=== PATIENT | male | born 1945 | race Caucasian/White ===

== ENCOUNTER 2016-11-05 20:38 | Observation (INO) | payer OTHER ==
[~2016-11-05] VITALS: Ht 175.3 cm; Wt 114.8 kg
[2016-11-05] MEDS ORDERED: GLUCOPHAGE 500500 MG PO (22:51)
[2016-11-05] MEDS ORDERED: LIPITOR TAB 1010 MG PO (22:52)
[2016-11-05] MEDS ORDERED: ELIQUIS 5 MG TAB5 MG PO (22:52)
[2016-11-05] MEDS ORDERED: PEPCID20 MG PO (22:52)
[2016-11-05] MEDS ORDERED: CARAFATE SU100 MG/ML PO (22:53)
[2016-11-06 07:56] LABS: BUN/CREATININE RATIO 16 (0-10)
[2016-11-06 08:17] LABS: HEMOGLOBIN 12.3 gm/dl (14.0-17.5); RED BLOOD COUNT 4.41 M/UL (4.20-5.50); WHITE BLOOD COUNT 4.9 K/UL (4.5-11.0)
[2016-11-06] MEDS ORDERED: IMDUR ER TAB 3030 MG PO (17:35)
== END 2016-11-06 18:00 | disposition home or self-care (01) ==
LOC: CCU 20:38
PROVIDERS: Internal Medicine; ADMIT Internal Medicine
DX: R07.9 Chest pain, unspecified (principal); I48.91 Unspecified atrial fibrillation; E11.9 Type 2 diabetes mellitus without complications; I10 Essential (primary) hypertension; E78.5 Hyperlipidemia, unspecified; E66.9 Obesity, unspecified; R53.1 Weakness; Z68.37 Body mass index [BMI] 37.0-37.9, adult; Z98.84 Bariatric surgery status; Z79.891 Long term (current) use of opiate analgesic; Z79.01 Long term (current) use of anticoagulants; Z79.899 Other long term (current) drug therapy; Z87.891 Personal history of nicotine dependence; Z88.8 Allergy status to other drugs, medicaments and biological substances
CPT/HCPCS: 36415; 71010; 78452; 80053; 82550; 82553; 82962; 83735; 84439; 84443; 84484; 85025; 93005; 93017; 96374; 96375; A9502; G0378; G0379; J2785; J7030

== ENCOUNTER → 2016-11-12 | Outpatient (CLI) | payer OTHER ==
[~2016-11-12] MED LIST: CARAFATE SU100 MG/ML PO; ELIQUIS 5 MG TAB5 MG PO; GLUCOPHAGE 500500 MG PO; IMDUR ER TAB 3030 MG PO; LEVAQUIN TAB 5500 MG PO; LIPITOR TAB 1010 MG PO; PEPCID20 MG PO; TYLENOL W/CODEIN1 E1 PO
[2016-11-12 13:37] LABS: HEMOGLOBIN 12.8 gm/dl (14.0-17.5); RED BLOOD COUNT 4.6 M/UL (4.20-5.50)
[2016-11-12 13:46] LABS: BUN/CREATININE RATIO 14 (0-10)
== END ==
LOC: LAB 12:26
PROVIDERS: Internal Medicine Cardiovascular Disease
DX: I48.91 Unspecified atrial fibrillation (principal); I49.5 Sick sinus syndrome
CPT/HCPCS: 36415; 80048; 85025

== ENCOUNTER 2016-11-13 12:13 | Outpatient (CLI) | payer OTHER ==
[~2016-11-13] VITALS: Ht 175.3 cm; Wt 114.3 kg
[~2016-11-13 12:13] MED LIST changes: -LEVAQUIN TAB 5500 MG PO; -TYLENOL W/CODEIN1 E1 PO
[2016-11-14] MEDS ORDERED: LEVAQUIN TAB 5500 MG PO (04:18)
[2016-11-14] MEDS ORDERED: TYLENOL W/CODEIN1 E1 PO (04:19)
== END 2016-11-14 10:25 | disposition home or self-care (01) ==
LOC: PROG CARE 12:13 → CATH 12:13 → PROG CARE 15:35 → CATH 11-14 10:25
DX: I49.5 Sick sinus syndrome (principal); I49.8 Other specified cardiac arrhythmias; I48.1 Persistent atrial fibrillation; I44.30 Unspecified atrioventricular block; E11.9 Type 2 diabetes mellitus without complications; R07.9 Chest pain, unspecified; Z23 Encounter for immunization; F17.210 Nicotine dependence, cigarettes, uncomplicated; M19.90 Unspecified osteoarthritis, unspecified site; Z79.84 Long term (current) use of oral hypoglycemic drugs; Z79.899 Other long term (current) drug therapy; Z79.02 Long term (current) use of antithrombotics/antiplatelets; Z88.3 Allergy status to other anti-infective agents; Z79.82 Long term (current) use of aspirin; Z79.1 Long term (current) use of non-steroidal anti-inflammatories (NSAID); Z98.84 Bariatric surgery status
CPT/HCPCS: 33207; 71010; 82962; 93005; C1786; C1898; J1200; J1644; J2250; J2270; J3010; J3370; J7040; J7050; J7070